=== PATIENT | female | born 1980 ===

== ENCOUNTER 2024-08-22 10:05 | Outpatient (RCR) | payer BC, SELFPAY | END 2024-08-22 23:59 | disposition home or self-care (01) | LOC: RPT 10:05 | DX: M54.50 Low back pain, unspecified (principal); M62.89 Other specified disorders of muscle; R10.2 Pelvic and perineal pain; N39.41 Urge incontinence; Z73.6 Limitation of activities due to disability; N39.3 Stress incontinence (female) (male) | CPT/HCPCS: 97140; 97163; 97530 ==